=== PATIENT | female | born 2005 | race Caucasian/White ===

== ENCOUNTER 2024-03-14 09:25 | Outpatient (AMB) | payer OTHER, SELFPAY ==
--- NOTE | 2024-03-14 09:26 | A.OFFPC_ITS ---
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 care Welding Machine Feeder Required: Yes Welding Machine Feeder Language: Hungarian Welding Machine Feeder Name: clara ([id number]) Information Interpreted: non-clinical & clinical Is last menstrual period known: Yes Last menstrual period: 03/02/24 Post menopausal: No Patient : No Allergies No Known Allergies Allergy (Verified 03/14/24 09:43) Tobacco use date assessed: 03/14/24 Dental Screening Dental Screen Date: 03/14/24 Did you have a dental visit in the last 12 months?: Yes Did you have a dental problem in the last 6 months where you did not have access to dental care?: No Was dental information given to patient?: Patient has dentist HPI automobile service station attendant HPI Details New Patient? ?? Prior PCP:?No PCP in [facility] Acute issue(s):? Needs TB testing & College vaccination form. ?? PMHx:? None SurgHx:?None FHx:? Denies SocHx: Nonsmoker, EtOH None. No drugs PFSH Social History (Updated 03/14/24 @ 09:41 by Justino Chaidez [facility]) Housing: House Patient Tobacco Use Status: Never used Tobacco e-Cigarette/Vaping Use: Never Used Use of substances other than those prescribed or required for medical reasons: No Patient : No Current occupational status: unemployed Current occupational exposures/hazards: No Cognitive needs: No Hearing needs: No Vision needs: No Female Reproductive History Menstrual Date of last menstrual period: 03/02/24 Questionnaire PHQ-9 Over the last 2 weeks, how often have you been bothered by any of the following problems? 1. Little interest or pleasure in doing things: not at all 2. Feeling down, depressed, or hopeless: not at all 3. Trouble falling or staying asleep, or sleeping too much: not at all 4. Feeling tired or having little energy: not at all 5. Poor appetite or overeating: not at all 6. Feeling bad about yourself - or that you are a failure or have let yourself or your family down: not at all 7. Trouble concentrating on things, such as reading the newspaper or watching television: not at all 8. Moving or speaking so slowly that other people could have noticed. Or the opposite - being so fidgety or restless that you have been moving around a lot more than usual: not at all 9. Thoughts that you would be better off or of hurting yourself in some way: not at all Total score: 0 Depression Screening Interpretation: Negative Depression Screening Done: Yes 67387 - PHQ-9 Billing: Yes Source: Developed by Drs. Zackery Egan, Danii Vargas, Jose G Gardner and colleagues, with an educational za from [employer]. Thrive Questionnaire Date Thrive assessed: 03/14/24 I am a: Patient What is your living situation today?: I have a steady place to live Within the past 12 months, did the food you bought not last and you didn't have the money to get more?: Never true Within the past 12 months, did you worry whether your food would run out before you got money to buy more?: Never true Do you have trouble paying for medicines?: No Do you have trouble getting transportation to medical appointments?: No Do you have trouble paying your heating and electricity bill?: No Do you have trouble taking care of your child, family member or friend?: No Do you have trouble with day-to-day activities such as bathing, preparing meals, shopping, managing finances, etc.?: No Are you currently unemployed and looking for a job?: Yes Are you interested in more education?: Yes Please select the resources that you would like help with: Job search/training Currently or been in a relationship where the following occur: No concerns reported THRIVE Score: 0 AUDIT C Alcohol Use Questionnaire (AUDIT-C) 1. How often do you have a drink containing alcohol?: Never 3. How often do you have six or more drinks on one occasion?: Never Total Score: 0 Score Reviewed/Action Taken: Yes CRISTHIAN-7 AMB Questionnaire CRISTHIAN-7 Date CRISTHIAN - 7 assessed: 03/14/24 Feeling nervous, anxious, or on edge: 0 = Not at all Not being able to stop or control worryin = Not at all Worrying too much about different things: 0 = Not at all Trouble relaxin = Not at all Being so restless that it is hard to sit still: 0 = Not at all Becoming easily annoyed or irritable: 0 = Not at all Feeling afraid as if something awful might happen: 0 = Not at all Total CRISTHIAN-7 score (0-4 normal; 5-9 mild; 10-14 moderate; 15-21 severe): 0 Source: Developed by Drs. Zackery Egan, Danii Vargas, Jose G Gardner and colleagues, with an educational za from [employer]. CRISTHIAN-7 Assessment Billing CRISTHIAN-7 Assessment Tool: CRISTHIAN-7 Assessment 86392 Review of Systems Const Denies chills, Denies fatigue, Denies fever(s), Denies headache(s) and Denies weakness ENT Denies dizziness and Denies headache(s) Card Denies chest pain, Denies lightheadedness, Denies dyspnea and Denies other (Palpitations) Resp Denies cough, Denies dyspnea, Denies wheezing and Denies other ( shortness of breath) Musc Denies numbness and Denies tingling Neuro Denies dizziness, Denies headache(s), Denies numbness, Denies tingling, Denies paresthesias and Denies weakness Psych Denies anxiety and Denies depression Endo Denies fatigue Aller/Immun Denies wheezing Physical exam (Primary Care) Vital Signs: Last Vital Signs Temp 98.5 F 03/14/24 09:44 Pulse 104 H 03/14/24 09:44 Resp 14 03/14/24 09:44 BP 110/60 03/14/24 09:44 BMI result Body Mass Index 19.2 Tobacco/Smoking Status: Tobacco use Status Tobacco use date assessed 03/14/24 03/14/24 09:46 Patient Tobacco Use Status Never used Tobacco 03/14/24 09:46 e-Cigarette/Vaping Use Never Used 03/14/24 09:46 PHQ-9: PHQ-9 Score PHQ-9: Total score 0 03/14/24 09:46 Depression Screening Interpretation: Negative Thrive Assessment: Date of Thrive Assessment Date Thrive assessed 03/14/24 03/14/24 09:46 Currently or been in a relationship where the following occur: No concerns reported Const General: no acute distress and well developed Nutritional Appearance: well nourished Orientation/consciousness: patient oriented x3 HENMT Head: Yes normocephalic and Yes atraumatic Eyes General: appearance normal, both eyes and all related structures Pupils: Equal, round and reactive pupils present EOM: EOMs intact bilaterally Resp Effort & Inspection: normal respiratory effort Auscultation: clear to auscultation bilaterally Cardio Rate: regular rate Rhythm: regular rhythm Heart sounds: S1 normal heart sound present, S2 normal heart sound present, no gallops, no murmurs and no rubs Neuro General: patient oriented x3 and gait normal Cranial nerves: Yes Equal, round and reactive pupils present Psych Affect: normal affect Coding Level of Care Code New Pt Level 3 (86574) Diagnoses Immunization counseling Z Screening for tuberculosis Z. Routine physicl lab exam Z. Additional Codes CRISTHIAN-7 Assessment Billing - CRISTHIAN-7 Assessment Tool: CRISTHIAN-7 Assessment 97142 ([id number]) PHQ-9 - 99362 - PHQ-9 Billing: Yes ([id number]) Assessment & Plan Assessment & Plan (1) Immunization counseling: Code(s): Z. - Encounter for immunization safety counseling Category: Medical Plan: New?patient?presents as?new?uzair ent?and?needs?immunizations?reviewed?for?college?form so?she?can?attend?college. Also?needs?screening?for?tuberculosis Appears to be missing varicella Will check titers (2) Screening for tuberculosis: Code(s): Z. - Encounter for screening for respiratory tuberculosis Category: Medical Plan: T Spot ordered (3) Routine physicl lab exam: Code(s): Z. - Encounter for general adult medical examination without abnormal findings Category: Medical Plan: Ordered nonfasting Orders: Orders Complete Blood Count Auto Diff Today Z00.00 - Encounter for general adult medical examination without abnormal findings UA and rflx microscopic Today Z00.00 - Encounter for general adult medical examination without abnormal findings LDL Cholesterol Direct Today E78.5 - Hyperlipidemia, unspecified, Z00.00 - Encounter for general adult medical examination without abnormal findings CT NG by PCR Today Z11.3 - Encounter for screening for infections with a predominantly sexual mode of transmission HIV Ab/Ag Today Z11.3 - Encounter for screening for infections with a predominantly sexual mode of transmission Hepatitis B,C Profile Today Z11.3 - Encounter for screening for infections with a predominantly sexual mode of transmission Syphilis Screen Today Z11.3 - Encounter for screening for infections with a predominantly sexual mode of transmission Varicella IgG Antibody Today Z71.85 - Encounter for immunization safety counseling Comprehensive Met. Panel Today Z00.00 - Encounter for general adult medical examination without abnormal findings Lipid Panel Today Z00.00 - Encounter for general adult medical examination without abnormal findings Microalbumin, Random (w Creat) Today I10 - Essential (primary) hypertension, Z00.00 - Encounter for general adult medical examination without abnormal findings TSH reflex Free T4 Today Z00.00 - Encounter for general adult medical examination without abnormal findings T Spot TB Today Z11.1 - Encounter for screening for respiratory tuberculosis MMR IgG Measles Mumps Rubella Today Z71.85 - Encounter for immunization safety counseling
[2024-03-14 09:44] VITALS: BP 110/60; PULSE 104; RESP 14; TEMP 36.9; BMI 19.2
== END 2024-03-14 10:35 | disposition home or self-care (01) ==
LOC: HO.HMCFM 09:25
PROVIDERS: PCP Family Medicine; Visit Provider Family Medicine
DX: Z00.00 Encounter for general adult medical examination without abnormal findings (principal); Z71.85 Encounter for immunization safety counseling; Z11.1 Encounter for screening for respiratory tuberculosis

== ENCOUNTER 2024-03-24 14:15 | Outpatient (AMB) | payer OTHER, SELFPAY ==
--- NOTE | 2024-03-24 14:29 | MHC.PC.OV ---
Vital Signs 03/24/24 14:33 Height 5 ft 4.96 in Weight 116 lb 2 oz BMI 19.3 BP 110/60 Blood Pressure Location Lt brachial Position Sitting Respiration 14 Pulse 98 Pulse Source Pulse Oximeter Pulse Oximetry (%) 99 Oxygen Delivery Method Room Air Intake Visit Reasons: f/u immunization titers and pw. Intake Note: f/u for immunizations Career Guidance Technician Required: Yes Career Guidance Technician Language: Nigerien Career Guidance Technician Name: ingris [id number] Information Interpreted: non-clinical & clinical Allergies No Known Allergies Allergy (Verified 03/24/24 14:30) Tobacco use date assessed: 03/14/24 Dental Screening Dental Screen Date: 03/14/24 HPI f/u immunization titers and pw. HPI Details 18 y/o female presents to f/u immunization titers. Pt received 2 doses of MMR. Titers show she is immune to measles and rubella but shows waned immunity for mumps. She has received 3 doses of hepatitis-B. Up to date on her Tdap. Immune to varicella. No records of meningitis vaccination. Tspot shows no infection with TB. [facility] Social History (Updated 03/14/24 @ 09:41 by Justino Chaidez [facility]) Housing: House Patient Tobacco Use Status: Never used Tobacco e-Cigarette/Vaping Use: Never Used Current occupational status: unemployed Current occupational exposures/hazards: No Cognitive needs: No Hearing needs: No Vision needs: No Questionnaire PHQ-9 Over the last 2 weeks, how often have you been bothered by any of the following problems? 2. Feeling down, depressed, or hopeless: not at all 3. Trouble falling or staying asleep, or sleeping too much: not at all Source: Developed by Drs. Zackery Egan, Danii Vargas, Jose G Gardner and colleagues, with an educational za from [employer]. Thrive Questionnaire Date Thrive assessed: 03/24/24 I am a: Patient What is your living situation today?: I have a steady place to live Within the past 12 months, did the food you bought not last and you didn't have the money to get more?: I choose not to answer this question Within the past 12 months, did you worry whether your food would run out before you got money to buy more?: I choose not to answer this question Do you have trouble paying for medicines?: No Do you have trouble getting transportation to medical appointments?: No Do you have trouble paying your heating and electricity bill?: No Do you have trouble taking care of your child, family member or friend?: No THRIVE Score: 0 CRISTHIAN-7 AMB Questionnaire CRISTHIAN-7 Date CRISTHIAN - 7 assessed: 03/14/24 Source: Developed by Drs. Zackery Egan, Danii Vargas, Jose G Gardner and colleagues, with an educational za from [employer]. Review of Systems Const Denies chills, Denies fatigue, Denies fever(s), Denies headache(s) and Denies weakness ENT Denies dizziness and Denies headache(s) Card Denies dyspnea Resp Denies cough, Denies dyspnea, Denies wheezing and Denies other (shortness of breath) Musc Denies numbness and Denies tingling Neuro Denies dizziness, Denies headache(s), Denies numbness, Denies tingling and Denies weakness Psych Denies anxiety and Denies depression Endo Denies fatigue Aller/Immun Denies wheezing Physical exam (Primary Care) Vital Signs: Last Vital Signs Pulse 98 03/24/24 14:33 Resp 14 03/24/24 14:33 BP 110/60 03/24/24 14:33 Pulse Ox 99 03/24/24 14:33 Oxygen Delivery Method Room Air 03/24/24 14:33 BMI result Body Mass Index 19.3 Tobacco/Smoking Status: Tobacco use Status Tobacco use date assessed 03/14/24 03/24/24 14:36 Patient Tobacco Use Status Never used Tobacco 03/24/24 14:36 e-Cigarette/Vaping Use Never Used 03/24/24 14:36 Thrive Assessment: Date of Thrive Assessment Date Thrive assessed 03/24/24 03/24/24 14:36 Const General: well developed; No acute distress Nutritional Appearance: well nourished Orientation/consciousness: patient oriented x3 HENMT Head: Yes normocephalic and Yes atraumatic Eyes General: appearance normal, both eyes and all related structures Pupils: Equal, round and reactive pupils present EOM: EOMs intact bilaterally Resp Effort & Inspection: normal respiratory effort Neuro General: patient oriented x3 and gait normal Cranial nerves: Yes Equal, round and reactive pupils present Psych Affect: normal affect Coding Level of Care Code Est Pt Level 3 (70824) Diagnoses Immunization counseling Z71.85 Screening for tuberculosis Z11.1 Assessment & Plan Assessment & Plan (1) Immunization counseling: Code(s): Z71.85 - Encounter for immunization safety counseling Category: Medical Plan: Reviewed?patient's?immunization?documentation?and?also?titers. Patient?did?receive?2?doses?of?MMR. Titers?show?that?she?is?immune?to?measles?and?rubella?but?shows?waned?immunity?for mumps. I?have?ordered?repeat?MMR.??She?should?receive?this?and?we?can?document?that?she?has?gotten?it.??She?can?have?this?retested?in?4-6?weeks. She?has?received?3?doses?of?hepatitis-B. She?has?received?her?most?recent?Tdap?4?years?ago.??Up-to-date. Titers?on?03/14/2024?show?that?she?is?immune?to?varicella. No?records?of?meningitis?vaccination?so?I?have?ordered?this.??Can?document?when?she?gets?this. Alternatively,?patient?turns?19?next?week?and?if?her?school?is?willing?to?wait?1?week, ?she?may?declined?this. T?spot?shows?that?she?has?no?infection?with?tuberculosis. Also,?patient?has?record?of?BCG?vaccination. (2) Screening for tuberculosis: Code(s): Z11.1 - Encounter for screening for respiratory tuberculosis Category: Medical Plan: As?above,?T?spot?is?negative?for?tuberculosis?infection Orders: Orders MMR State Immunization Today Z23 - Encounter for immunization MMR IgG Measles Mumps Rubella Today Z71.85 - Encounter for immunization safety counseling Meningococcal ACWY Immunization Today Z23 - Encounter for immunization Medications: New mening vac A,C,Y,W135 dip (PF) 0.5 mL IM ONCE 0.5 mL 0RF Z23 - Encounter for immunization M-M-R II (PF) (measles,mumps,rubella vacc(PF)) 0.5 mL subcut ONCE 1 ea 0RF NS Z23 - Encounter for immunization
[2024-03-24 14:33] VITALS: BP 110/60; PULSE 98; RESP 14; O2SAT 99; BMI 19.3
== END 2024-03-24 15:47 | disposition home or self-care (01) ==
PROVIDERS: PCP Family Medicine; Visit Provider Family Medicine
DX: Z71.85 Encounter for immunization safety counseling (principal); Z11.1 Encounter for screening for respiratory tuberculosis

== ENCOUNTER → 2024-03-24 14:15 | Outpatient (BNVA) | payer OTHER, SELFPAY | PROVIDERS: PCP Family Medicine; Visit Provider Family Medicine | DX: Z71.85 Encounter for immunization safety counseling (principal); Z11.1 Encounter for screening for respiratory tuberculosis | CPT/HCPCS: 99212 ==

== ENCOUNTER 2024-03-26 08:57 | Outpatient (AMB) | payer OTHER, SELFPAY ==
--- NOTE | 2024-03-26 09:13 | AM.OFFVISNUR ---
Intake Visit Reasons: MMR Allergies No Known Allergies Allergy (Verified 03/24/24 14:30) Immunizations M-M-R II (PF) 1,000-12,500 TCID50/0.5 mL subcutaneous solution Performing Provider: Jude Malone MD [facility] Administered by: Pilar Irwin LPN on 03/26/24 09:14 Dose Route Admin Location Dispensed Lot Number Expiration Date [facility] Help Desk Internship 0.5 mL subcut Left Arm 0.5 mL [id number] 01/22/25 1063-7161-92 [employer] & D VIS Given Date VIS Provided VIS Publication Date 03/26/24 Single Vaccine 20 Eligibility Eligibility Date Funding Source Not [facility] Eligible 03/26/24 Private Assessment & Plan Assessment & Plan Orders: Orders MMR Immunization Today Z23 - Encounter for immunization Medications: New M-M-R II (PF) (measles,mumps,rubella vacc(PF)) 0.5 mL subcut ONCE 1 ea 0RF NS Z23 - Encounter for immunization
== END 2024-03-26 09:16 | disposition home or self-care (01) ==
PROVIDERS: PCP Family Medicine; Visit Provider Family Medicine
DX: Z23 Encounter for immunization (principal)

== ENCOUNTER → 2024-03-26 08:57 | Outpatient (BNVA) | payer OTHER, SELFPAY | PROVIDERS: PCP Family Medicine; Visit Provider Family Medicine | DX: Z23 Encounter for immunization (principal) | CPT/HCPCS: 90471; 90707 ==

== ENCOUNTER → 2024-05-05 15:17 | Outpatient (BNVA) | payer OTHER, SELFPAY | PROVIDERS: PCP Family Medicine; Visit Provider Family Medicine ==

== ENCOUNTER 2024-05-05 15:38 | Outpatient (REF) | payer OTHER, SELFPAY ==
[2024-05-06 11:33] LABS: CT PCR NOT DETECTED (Not Detect.); NG PCR NOT DETECTED (Not Detect.)
[2024-05-07 13:28] LABS: Rubeola IgG (Measles) >300.00 AU/mL
== END 2024-05-05 15:39 | disposition home or self-care (01) ==
LOC: HO.WFDLDS 15:38
PROVIDERS: Visit Provider Family Medicine
DX: Z11.3 Encounter for screening for infections with a predominantly sexual mode of transmission (principal); Z71.85 Encounter for immunization safety counseling
CPT/HCPCS: 86735; 86762; 86765; 87491; 87591

== ENCOUNTER 2024-05-16 16:19 | Outpatient (AMB) | payer OTHER, SELFPAY ==
--- NOTE | 2024-05-16 16:40 | A.OFFPC_ITS ---
Vital Signs 05/16/24 16:41 Height 5 ft 4.96 in Weight 115 lb 4 oz BMI 19.2 BP 110/50 L Blood Pressure Location Rt brachial Position Sitting Respiration 14 Pulse 80 Pulse Source Pulse Oximeter Temp 98.3 F Temp Source Oral Pulse Oximetry (%) 98 Oxygen Delivery Method Room Air Intake Visit Reasons: F/u labs Intake Note: lab review Manager Career Required: Yes Manager Career Language: Slovenian Manager Career Name: [email or web address] [id number] Information Interpreted: clinical only Allergies No Known Allergies Allergy (Verified 05/16/24 16:40) Tobacco use date assessed: 03/14/24 Dental Screening Dental Screen Date: 03/14/24 HPI F/u labs HPI Details Patient?presents?for?a?follow-up?regarding?MMR?immunity. 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 Titers?showed?that?she?had?immunity?to?measles?and?rubella?but?not?mumps. She?was?given?repeat?immunization?and?has?followed?up about?6?weeks?later. Titers?now?show?immunity?to?measles,?mumps?and?rubella. [facility] Social History (Updated 03/14/24 @ 09:41 by Justino Chaidez [facility]) Housing: House Patient Tobacco Use Status: Never used Tobacco e-Cigarette/Vaping Use: Never Used Current occupational status: unemployed Current occupational exposures/hazards: No Cognitive needs: No Hearing needs: No Vision needs: No Questionnaire Thrive Questionnaire Date Thrive assessed: 03/24/24 I am a: Patient What is your living situation today?: I have a steady place to live Within the past 12 months, did the food you bought not last and you didn't have the money to get more?: I choose not to answer this question Within the past 12 months, did you worry whether your food would run out before you got money to buy more?: I choose not to answer this question Do you have trouble paying for medicines?: No Do you have trouble getting transportation to medical appointments?: No Do you have trouble paying your heating and electricity bill?: No Do you have trouble taking care of your child, family member or friend?: No Do you have trouble with day-to-day activities such as bathing, preparing meals, shopping, managing finances, etc.?: No Are you currently unemployed and looking for a job?: No Are you interested in more education?: Yes Please select the resources that you would like help with: None THRIVE Score: 0 CRISTHIAN-7 AMB Questionnaire CRISTHIAN-7 Date CRISTHIAN - 7 assessed: 03/14/24 Source: Developed by Drs. Zackery Egan, Danii Vargas, Jose G Gardner and colleagues, with an educational za from [employer]. Review of Systems Const Denies chills, Denies fatigue, Denies fever(s), Denies headache(s) and Denies weakness ENT Denies dizziness and Denies headache(s) Card Denies dyspnea Resp Denies cough, Denies dyspnea, Denies wheezing and Denies other ( shortness of breath) Musc Denies numbness and Denies tingling Neuro Denies dizziness, Denies headache(s), Denies numbness, Denies tingling, Denies paresthesias and Denies weakness Psych Denies anxiety and Denies depression Endo Denies fatigue Aller/Immun Denies wheezing Physical exam (Primary Care) Vital Signs: Last Vital Signs Temp 98.3 F 05/16/24 16:41 Pulse 80 05/16/24 16:41 Resp 14 05/16/24 16:41 BP 110/50 L 05/16/24 16:41 Pulse Ox 98 05/16/24 16:41 Oxygen Delivery Method Room Air 05/16/24 16:41 BMI result Body Mass Index 19.2 Tobacco/Smoking Status: Tobacco use Status Tobacco use date assessed 03/14/24 05/16/24 16:44 Patient Tobacco Use Status Never used Tobacco 05/16/24 16:44 e-Cigarette/Vaping Use Never Used 05/16/24 16:44 Thrive Assessment: Date of Thrive Assessment Date Thrive assessed 03/24/24 05/16/24 16:44 Const General: no acute distress and well developed Nutritional Appearance: well nourished Orientation/consciousness: patient oriented x3 HENMT Head: Yes normocephalic and Yes atraumatic Eyes General: appearance normal, both eyes and all related structures Pupils: Equal, round and reactive pupils present EOM: EOMs intact bilaterally Resp Effort & Inspection: normal respiratory effort Neuro General: patient oriented x3 and gait normal Cranial nerves: Yes Equal, round and reactive pupils present Psych Affect: normal affect Coding Level of Care Code Est Pt Level 3 (70683) Diagnoses Immunization counseling Z71.85 Assessment & Plan Assessment & Plan (1) Immunization counseling: Code(s): Z71.85 - Encounter for immunization safety counseling Category: Medical Plan: Titers?now?show?immunization?to?measles,?mumps?and?rubella?after?repeat?immuniza tion?due?to?waning?immunity?to?mumps. Will?print?out?titer?report?for?her?documentation?with?her?college.
[2024-05-16 16:41] VITALS: BP 110/50; PULSE 80; RESP 14; TEMP 36.8; O2SAT 98; BMI 19.2
== END 2024-05-16 17:01 | disposition home or self-care (01) ==
PROVIDERS: PCP Family Medicine; Visit Provider Family Medicine
DX: Z71.85 Encounter for immunization safety counseling (principal)

== ENCOUNTER → 2024-05-16 16:19 | Outpatient (BNVA) | payer OTHER, SELFPAY | PROVIDERS: PCP Family Medicine; Visit Provider Family Medicine | DX: Z71.85 Encounter for immunization safety counseling (principal); Z71.2 Person consulting for explanation of examination or test findings | CPT/HCPCS: 99212 ==

== ENCOUNTER 2024-06-17 10:24 | Outpatient (AMB) | payer OTHER, SELFPAY ==
--- NOTE | 2024-06-17 10:41 | MHC.PC.OV ---
Vital Signs 06/17/24 10:51 Height 5 ft 4.96 in Weight 112 lb 6 oz BMI 18.7 BP 120/60 Blood Pressure Location Rt brachial Position Sitting Respiration 12 Pulse 97 Pulse Source Pulse Oximeter Temp 99.0 F Temp Source Oral Pulse Oximetry (%) 98 Oxygen Delivery Method Room Air Intake Visit Reasons: Rash back & stomach Intake Note: patient is scheduled for rash on abd and back x3 days and rib pain Project Developer Required: Yes Project Developer Language: Divehi Information Interpreted: clinical only Allergies No Known Allergies Allergy (Verified 06/17/24 10:50) Medication List - Last Reconciled 06/17/24 by Jude Malone MD gabapentin 300 mg PO BID 30 days ibuprofen 400 mg PO Q8H PRN 30 days valacyclovir 500 mg PO Q12H 14 days Tobacco use date assessed: 03/14/24 Dental Screening Dental Screen Date: 03/14/24 HPI Rash back & stomach HPI Details 19 y/o female presents today with complaints of a rash on her back/abdomen. Pt notes rash started about 2-3 days ago. Notes itching. Denies any recent changes but did note she had tried some clothing at a store. HPI Comments History of Present Illness Details Documentation assistance for Jude Malone MD, was provided by Terence Pastor, Sales Coordinator on 06/17/2024 at 11:25 AM EST. I, Dr. Malone, have read, observed, and verified documentation. [facility] Social History (Updated 03/14/24 @ 09:41 by Justino Chaidez, [facility]) Housing: House Patient Tobacco Use Status: Never used Tobacco e-Cigarette/Vaping Use: Never Used Current occupational status: unemployed Current occupational exposures/hazards: No Cognitive needs: No Hearing needs: No Vision needs: No Questionnaire Thrive Questionnaire Date Thrive assessed: 03/24/24 CRISTHIAN-7 AMB Questionnaire CRISTHIAN-7 Date CRISTHIAN - 7 assessed: 03/14/24 Source: Developed by Drs. Zackery Egan, Danii Vargas, Jose G Gardner and colleagues, with an educational za from [employer]. Review of Systems Skin/Breast Reports rash Physical exam (Primary Care) Vital Signs: Last Vital Signs Temp 99.0 F 06/17/24 10:51 Pulse 97 06/17/24 10:51 Resp 12 06/17/24 10:51 BP 120/60 06/17/24 10:51 Pulse Ox 98 06/17/24 10:51 Oxygen Delivery Method Room Air 06/17/24 10:51 BMI result Body Mass Index 18.7 Tobacco/Smoking Status: Tobacco use Status Tobacco use date assessed 03/14/24 06/17/24 10:43 Patient Tobacco Use Status Never used Tobacco 06/17/24 10:43 e-Cigarette/Vaping Use Never Used 06/17/24 10:43 Thrive Assessment: Date of Thrive Assessment Date Thrive assessed 03/24/24 06/17/24 10:43 Coding Level of Care Code Est Pt Level 3 (55803) Diagnoses Shingles rash B02.9 Assessment & Plan Assessment & Plan (1) Shingles rash: Code(s): B02.9 - Zoster without complications Category: Medical Plan: Shingles?rash?at?right?back?and?ribs Start?valacyclovir?and?gabapentin Can?also?use?ibuprofen Call?or?return?to?office?if?worsening?or?not?improving Keep?covered?until?blisters?have?crusted?over Get?plenty?of?rest?and?fluids Medications: New valacyclovir 500 mg PO Q12H 28 tabs 0RF 14 days ibuprofen 400 mg PO Q8H PRN 90 tabs 0RF pain 30 days gabapentin 300 mg PO BID 60 caps 0RF 30 days
[2024-06-17 10:51] VITALS: BP 120/60; PULSE 97; RESP 12; TEMP 37.2; O2SAT 98; BMI 18.7
== END 2024-06-17 13:43 | disposition home or self-care (01) ==
LOC: HO.HMCFM 10:24
PROVIDERS: PCP Family Medicine; Visit Provider Family Medicine
DX: B02.9 Zoster without complications (principal)

== ENCOUNTER → 2024-06-17 10:24 | Outpatient (BNVA) | payer OTHER, SELFPAY | PROVIDERS: PCP Family Medicine; Visit Provider Family Medicine | DX: B02.9 Zoster without complications (principal) | CPT/HCPCS: 99212 ==